=== PATIENT | female | born 1940 | race Hispanic/Latino ===

== ENCOUNTER 2023-11-14 08:21 | Emergency (ER) | payer OTHER ==
[~2023-11-14] VITALS: Ht 162.6 cm; Wt 76.7 kg
[2023-11-14 08:49] LABS: SARS-CoV-2, RNA, NAAT POSITIVE SARS CoV-2 (NEGATIVE)
[2023-11-14 08:50] LABS: RAPID GROUP A STREP negative (NEGATIVE)
[2023-11-14 08:58] LABS: INFLUENZA TYPE A Negative For Type A (NEGATIVE); INFLUENZA TYPE B Negative For Type B (NEGATIVE)
[2023-11-14 09:51] VITALS: TEMP 100.6
[2023-11-14] MEDS: ACETAMINOPHEN 325 MG TAB PO ONE (09:51)
[2023-11-14 11:16] VITALS: BP 143/66; O2SAT 95
[2023-11-14] MEDS ORDERED: NIRM1TAB9 PO (12:20)
[2023-11-14] MEDS: 0.9% NACL 500ML IV.SOLN 500 ML IV ONE (12:42)
[2023-11-14] MEDS: METOCLOPRAMIDE 10 MG/2 ML VIAL IVP ONE (12:42)
[2023-11-14] MEDS: FAMOTIDINE 20MG VIAL IV ONE (12:42)
[2023-11-14 12:47] LABS: BASOPHILS # (AUTO) 0.02 K/uL (0.00-0.20); BASOPHILS % (AUTO) 0.5 % (0.0-5.0); EOSINOPHILS # (AUTO) 0.03 K/uL (0.00-0.70); EOSINOPHILS % (AUTO) 0.8 % (0.0-8.0); HEMATOCRIT 33.3 % (36-48); IMMATURE GRANULOCYTE ABSOLUTE 0.01 K/uL (0-1); LYMPHOCYTES # (AUTO) 0.6 K/uL (1.0-4.8); LYMPHOCYTES % (AUTO) 15.3 % (21.0-51.0); MEAN CORPUSCULAR HEMOGLOBIN 30.5 pg (27.0-33.0); MEAN CORPUSCULAR HGB CONC 33.3 g/dL (32.0-36.0); MEAN CORPUSCULAR VOLUME 91.5 fL (79-99); MONOCYTES # (AUTO) 0.4 K/uL (0.1-1.0); MONOCYTES % (AUTO) 10.4 % (3.0-13.0); NEUTROPHILS # (AUTO) 2.8 K/uL (1.8-7.7); NEUTROPHILS % (AUTO) 72.7 % (40.0-77.0); PLATELET COUNT (AUTO) 230 K/uL (130-400); RED BLOOD CELL COUNT(AUTO) 3.64 MIL/uL (4.00-5.50); RED CELL DISTRIBUTION WIDTH 13.2 % (11.0-15.5); WHITE BLOOD COUNT (AUTO) 3.9 K/uL (4.8-10.8)
[2023-11-14 12:58] VITALS: PULSE 74; RESP 20
[2023-11-14] MEDS: ALBUTEROL 0.083% 2.5 MG/3 ML INH IH ONE (12:58)
[2023-11-14 13:21] LABS: CREATININE 0.7 mg/dL (0.5-1.5); POTASSIUM 3.4 mmol/L (3.5-5.1)
[2023-11-14 13:26] LABS: ALBUMIN 3.5 g/dL (3.5-5.0); BILIRUBIN,TOTAL 0.4 mg/dL (0.2-1.0); TOTAL PROTEIN, SERUM 7.5 g/dL (6.0-8.3)
== END 2023-11-14 14:16 | disposition home or self-care (01) ==
LOC: EDH 08:21
DX: U07.1 COVID-19 (principal); F17.200 Nicotine dependence, unspecified, uncomplicated; Z90.710 Acquired absence of both cervix and uterus; Z98.890 Other specified postprocedural states
CPT/HCPCS: 99284; 96374; 87635; 96375; 80053; 85025; 87880; 87804 ×2; 83605; 36415; 94640; J7040; J3490; J2765